=== PATIENT | female | born 1985 | race Hispanic/Latino ===

== ENCOUNTER 2021-05-03 18:06 | Emergency (ER) | payer MEDICARE ==
[2021-05-03] MEDS ORDERED: KETOROLAC 60 MG/2 ML INJ IM ONE (18:25)
--- NOTE | 2021-05-03 18:27 | Event Note ---
ED Screening Note ED Screening Note: pt presents for a left shoulder dislocation that occurred just prior to arrival She states that she was reaching for her bag when she was getting out of a car and felt a popping sensation She states that this is the third time its dislocated in 1 month She states that she has a history of this in the past Patient is requesting Toradol as she states that she does not want any narcotics Obvious deformity to the left shoulder, neurovascularly intact with strong distal pulses This initial assessment/diagnostic orders/clinical plan/treatment(s) is/are subject to change based on patients health status, clinical progression and re- assessment by fellow clinical providers in the ED. Further treatment and workup at subsequent clinical providers discretion. Patient/guardian urged not to elope from the ED as their condition may be serious if not clinically assessed and managed. Initial orders include: X-ray charge nurse tex aware pt needs room for joint reduction aware
--- NOTE | 2021-05-03 19:07 | XRay Report ---
LEFT SHOULDER 2 VIEWS INDICATION: left shoulder dislocation. COMPARISON: None. IMPRESSION: An anterior, inferior dislocation is present at the glenohumeral joint. Normal articulat ion at the AC joint. No acute osseous injury is appreciated. Signer Name: Brodie Alfonso Jr, MD Signed: 05/03/2021 7:02 PM Workstation Name: [id number]
[2021-05-03] MEDS ORDERED: KETAMINE 500 MG/5 ML VIAL MDV IV ONE (19:41)
[2021-05-03] MEDS ORDERED: propofoL 200 MG/20 ML VIAL IV ONE (19:41)
[2021-05-03] MEDS ORDERED: ONDANSETRON 4 MG/2 ML INJ IV ONE (19:41)
--- NOTE | 2021-05-03 19:42 | Emergency Department Report ---
Upper Extremity - HPI Chief Complaint: Shoulder Injury Stated Complaint: DISLOCATED LT SHOULDER Time Seen by Provider: 05/03/21 19:06 Upper Extremity: Left Shoulder Occurred When: Today Mechanism: Twist Symptoms: Yes Pain with Movement, Yes Deformity, Yes Limited Range of Movement, No Numbness, No Weakness, No Swelling, No Bruising/Ecchymosis, No Laceration or Abrasion Other History: Patient is a 35-year-old female. She is not known to myself previously. She is right-hand dominant. She states that she is not . She presents to the ER today with complaints of recurrent left-sided shoulder dislocation. She reports that she was reaching for a brown paper bag. This is the third or fourth time her shoulder has been dislocated. She denies additional injuries and complaints. She last ate at approximately 930 this morning. ED Review of Systems ROS: Stated complaint: DISLOCATED LT SHOULDER Other details as noted in HPI Comment: All other systems reviewed and negative Musculoskeletal: joint swelling, arthralgia, myalgia ED Past Medical Hx - Past Medical History Hx Asthma: Yes - Medications Home Medications: Home Medications Medication Instructions Recorded Confirmed Last Taken Type Acetaminophen [Non-Aspirin Extra 500 mg PO Q6HR PRN #30 tablet 05/03/21 Unknown Rx Strength] Ibuprofen [Motrin] 400 mg PO Q8H PRN #30 tablet 05/03/21 Unknown Rx Upper Extremity Exam - Exam General: Vital signs noted. No distress. Alert and acting appropriately. No facial droop. Tongue midline. Extraocular movements intact bilaterally. Facial sensation intact to light touch in V1, V2, V3 distribution bilaterally. 5 and a 5 strength in 4 extremities. Sensation intact to light touch in 4 extremities. 2+ pulses noted in the bilateral upper and lower extremities. There is no palpable cord. negative Homans sign. Muscular compartments are soft. The pelvis is stable. Sensation intact to light touch in the bilateral deltoid, median, radial, ulnar distribution Head and Torso: No HEENT Abnormality, No Neck Tenderness, No Chest/Lungs Abnormality, No Abdominal Tenderness, No Back Tenderness Shoulder Exam: Yes Shoulder Tenderness (There is left-sided shoulder tenderness), Yes Shoulder Deformity (Left shoulder dislocation), No Clavicle Tenderness, No Normal Range of Motion in Shoulder (Normal range of motion in the right shoulder. Left shoulder range of motion limited secondary to pain), No AC Joint Tenderness Arm Exam: No Arm/Humerus Tenderness, No Arm Deformity Elbow: No Elbow Tenderness, No Normal Range of Motion in Elbow, No Elbow Deformity Forearm: No Forearm Tenderness, No Forearm Deformity, No Pain with Pronation, No Pain with Supination Wrist: Yes Normal ROM in Wrist, No Wrist Tenderness, No Wrist Deformity, No Snuffbox Tenderness, No Pain with Axial Thumb Compression Hand: Yes Normal ROM in Digit(s), No Hand Tenderness, No Hand Deformity, No Digit Tenderness, No Digit(s) Deformity, No Tendon Dysfunction CMS Exam: Yes Normal Distal Pulses, Yes Normal Capillary Refill, Yes Normal Distal Sensation, No Broken Skin ED Course Vital Signs 05/03/21 05/03/21 18:21 18:37 Temperature 98.3 F Pulse Rate 89 Respiratory 16 16 Rate Blood Pressure 148/69 [Left] O2 Sat by Pulse 96 Oximetry - EJ/Peripheral Line Arm L Time Out Performed: Yes Indications: nurses unable to establis Skin Cleansed in Sterile Fashion: Yes Size: 22 Dressing Placed: Tegaderm Patient Tolerated Procedure: well - Moderate Sedation Indications: fracture/dislocation redu Presedation Evaluation: Patient has been n.p.o. since approximately 930 this morning. Risks, benefits and alternatives discussed with patient while nurses present as a witness, for moderate sedation with closed reduction. Patient provides written and verbal informed consent for moderate sedation and closed reduction. Patient placed on hall monitor, with end-tidal, capnography, and appropriate monitoring equipment. Timeout was performed, patient received ketamine and propofol, and left shoulder was easily reduced. I then applied a shoulder sling. Patient tolerated the procedure well. ASA Class: I Mallampati Airway Score: 1 Preparation: hall monitor applied, pulse oximeter, capnometry used, supplemental O2 applied, suction/airway equipment at bedside Ketamine: IV Ketamine Dose: 57 IV Propofol Dose (mgs): 60 Complications: none Patient Tolerated Procedure: well - Orthopedic Joint Reduction Joint #1 Consent Obtained: verbal consent, emergent situation Time Out Performed: Yes Side: left Joint Reduction Location: shoulder Analgesia: moderate sedation Shoulder Technique Used (if applicable): scapula manipulation Post-Reduction Neuro Exam: intact Post-Reduction Vascular Exam: intact Post Reduction X-Ray Obtained: Yes Post Reduction X-Ray Results: reduced Splint Applied: Yes Patient Tolerated Procedure: well - Orthopedic Splinting/Casting Injury #1 Side: left Upper Extremity Injury Location: shoulder Upper Extremity Immobilizer: sling/shoulder immobilize ED Medical Decision Making - Lab Data Vital Signs 05/03/21 05/03/21 05/03/21 18:21 18:37 20:08 Temperature 98.3 F Pulse Rate 89 88 Pulse Rate [ Intra-Procedure ] Pulse Rate [ Post-Procedure] Pulse Rate [Pre -Procedure] Respiratory 16 16 35 H Rate Respiratory Rate [Intra- Procedure] Respiratory Rate [Post- Procedure] Respiratory Rate [Pre- Procedure] Blood Pressure 122/89 Blood Pressure [Intra- Procedure] Blood Pressure 148/69 [Left] Blood Pressure [Post-Procedure ] Blood Pressure [Pre-Procedure] O2 Sat by Pulse 96 98 Oximetry O2 Sat by Pulse Oximetry [ Intra-Procedure ] O2 Sat by Pulse Oximetry [Post -Procedure] O2 Sat by Pulse Oximetry [Pre- Procedure] 05/03/21 05/03/21 05/03/21 20:10 20:20 20:24 Temperature Pulse Rate 89 94 H Pulse Rate [ 91 H Intra-Procedure ] Pulse Rate [ 91 H Post-Procedure] Pulse Rate [Pre 89 -Procedure] Respiratory 27 H 36 H Rate Respiratory 19 Rate [Intra- Procedure] Respiratory 20 Rate [Post- Procedure] Respiratory 30 H Rate [Pre- Procedure] Blood Pressure 118/84 130/92 Blood Pressure 120/89 [Intra- Procedure] Blood Pressure [Left] Blood Pressure 112/73 [Post-Procedure ] Blood Pressure 118/84 [Pre-Procedure] O2 Sat by Pulse 97 95 96 Oximetry O2 Sat by Pulse 97 Oximetry [ Intra-Procedure ] O2 Sat by Pulse 100 Oximetry [Post -Procedure] O2 Sat by Pulse 97 Oximetry [Pre- Procedure] 05/03/21 05/03/21 05/03/21 20:30 20:40 20:50 Temperature Pulse Rate 92 H 90 83 Pulse Rate [ Intra-Procedure ] Pulse Rate [ Post-Procedure] Pulse Rate [Pre -Procedure] Respiratory 17 13 12 Rate Respiratory Rate [Intra- Procedure] Respiratory Rate [Post- Procedure] Respiratory Rate [Pre- Procedure] Blood Pressure 119/85 112/73 111/80 Blood Pressure [Intra- Procedure] Blood Pressure [Left] Blood Pressure [Post-Procedure ] Blood Pressure [Pre-Procedure] O2 Sat by Pulse 99 100 99 Oximetry O2 Sat by Pulse Oximetry [ Intra-Procedure ] O2 Sat by Pulse Oximetry [Post -Procedure] O2 Sat by Pulse Oximetry [Pre- Procedure] - Radiology Data Radiology results: pending, report reviewed, image reviewed LEFT SHOULDER 2 VIEWS INDICATION: left shoulder dislocation. COMPARISON: None. IMPRESSION: An anterior, inferior dislocation is present at the glenohumeral joint. Normal articulation at the AC joint. No acute osseous injury is apprecia mike. Signer Name: Brodie Alfonso Jr, MD Signed: 05/03/2021 6:02 PM Workstation Name: [id number] LEFT SHOULDER 2 VIEWS INDICATION: Shoulder reduction. COMPARISON: Earlier today at 1844 hours IMPRESSION: The anterior inferior dislocation at the left shoulder has been reduced. Alignment appears anatomic. No obvious acute bony injury is detected on 2 views. Signer Name: Brodie Alfonso Jr, MD Signed: 05/03/2021 8:01 PM Workstation Name: [id number] - Medical Decision Making Differential diagnosis, including but not limited to: Recurrent shoulder dislocation Assessment and plan: 35-year-old female, who was afebrile, with reassuring vital signs, clinically sober, with a GCS of 15, who presents to the ER today with a complaint of recurrent left-sided shoulder dislocation. The shoulder is reduced by myself. Post reduction, she remains neurovascularly intact. Patient observed in the department for an appropriate period of time. She is now awake, alert, oriented and sober. She is asking for additional pain medication. She received Toradol already. She does not want Tylenol. She reports she can take morphine. Her right upper extremity IV was minimally infiltrated, removed by the nurse, warm compresses to be applied, expectant management. Patient suitable to follow-up with an outpatient primary care doctor and orthopedist. Return precautions are reviewed. Critical care attestation.: If time is entered above; I have spent that time in minutes in the direct care of this critically ill patient, excluding procedure time. ED Disposition Clinical Impression: Recurrent dislocation, left shoulder Disposition: HOME / SELF CARE / HOMELESS Is pt being admited?: No Does the pt Need Aspirin: No Condition: Stable Instructions: Shoulder Dislocation Additional Instructions: Please keep the left-sided shoulder sling in place. Please follow-up with an outpatient orthopedist within the next 3 to 5 days. Avoid heavy lifting and strenuous physical activities as well as sports in contact athletics. Patient may take the pain medication as needed and directed. Please return to the emergency room right away with new pain, worsened pain, migration of pain, projectile vomiting, change in mental status, confusion, inability tolerate liquid feeds, new, worsened or different symptoms not present on the initial emergency room evaluation, extremity weakness and no numbness. Referrals: ALONDRA MASSEY MD [Staff Physician] - 3-5 Days [facility] [Provider Group] - 3-5 Days
[2021-05-03] MEDS ORDERED: SODIUM CHLORIDE 0.9% 500 ML 500 ML IV ONE (20:24)
--- NOTE | 2021-05-03 21:06 | XRay Report ---
LEFT SHOULDER 2 VIEWS INDICATION: Shoulder reduction. COMPARISON: Earlier today at 1844 hours IMPRESSION: The anterior inferior dislocation at the left shoulder has been reduced. Alignment appea rs anatomic. No obvious acute bony injury is detected on 2 views. Signer Name: Brodie Alfonso Jr, MD Signed: 05/03/2021 9:01 PM Workstation Name: [id number]
[2021-05-03] MEDS ORDERED: MORPHINE 4 MG/1 ML INJ IV ONE (21:33)
[2021-05-03] MEDS ORDERED: traMADol 50 MG TAB PO ONE (21:42)
[2021-05-03 22:53] VITALS: BP 109/73
== END 2021-05-03 22:16 | disposition home or self-care (01) ==
LOC: ED 18:06
DX: M24.412 Recurrent dislocation, left shoulder (principal); J45.909 Unspecified asthma, uncomplicated
CPT/HCPCS: 23650; 73030; 96372; 96374; 99284; J1885; J2405; J2704; J7040; 99283